=== PATIENT | female | born 1935 | race Caucasian/White ===

== ENCOUNTER 2016-05-18 10:30 | Outpatient (RCR) | payer MEDICARE, OTHER ==
--- NOTE | 2016-04-08 11:52 | PT/OT/ST INITIAL EVALUATION ---
Department of Health and Human Services Form Approved [facility] Care Financing Administration OMB No. [id number] PLAN OF CARE/ASSESSMENT FOR OUTPATIENT REHABILITATION (Complete for Initial Claims Only) 1. LAST NAME Negrita FIRST NAME Alba Sanchez 2. ACC # [id number] 3. [facility] [id number] 4. TYPE: X PT 5. REFERRING PHYSICIAN Dr. Ela Bone 6. PRIMARY DX ICD 10 code M21.372 Left extremity weakness and foot drop 7. SECONDARY DX 8. ONSET DATE 5 years ago 9. REFERRAL DATE 04/05/2016 10. SOC. DATE/TIME 04/05/2016 16:19 11. PRIOR LEVEL OF FUNCTION; PERTINENT HISTORY (Prior therapy results, reason for referral.) S: The patient is an 80-year-old female who did consent to today's evaluation and treatment. The patient was referred by Dr. Ela Bone to address progressive left lower extremity weakness and foot drop. The patient has noted, over the past 5 years, her left lower extremity feels as if it is getting weaker and recently had a fall 3 weeks ago with no fractures or serious injuries from this issue. 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 The patient has had one other fall this year. Prior level of function: The patient does live in a house by herself with 2 entry steps. She is still driving. The patient was able to ambulate without an assistive device prior to her fall and was working out at the [employer] 3 times a week approximately 4 months ago. Current function: The patient reports since her fall, she has had increased unsteadiness, had been required to ambulate with a cane and has increased difficulty with ambulating as far as she wants was due to her unsteadiness. Therapy History: The patient has had physical therapy for this issue; however, this was approximately 3 to 4 years ago. She did find benefit in participating in a therapy at that time. Pain level: The patient's maximal pain level is 10/10 in the left lower extremity at night. This does occur 3 to 4 times a week and it is improved when she straightens her leg out. Her current pain level in the left lateral ankle is a 1/10. She does describe her pain as having tingling at times, as well as pain progressing from the lateral ankle all the way up the lateral thigh. Diagnostic tests: The patient does report she did undergo diagnostic testing following her fall 3 weeks ago completed by the ER. 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 Medication list: The patient does take a thyroid medication, depression medication and half a hypertension medication. All of her medications that she takes [id number] include Tylenol, ibuprofen Aleve, or aspirin. The patient's goal for physical therapy is to be able to ambulate without falling. 12. INITIAL ASSESSMENT/SAFETY PRECAUTIONS/MEDICAL COMPLICATIONS (Level of function at start of care. Be specific, use objective measures, list problems.) O: APPEARANCE AND OBSERVATION: Assessment of the patient's gait reveals left posterior rotation, increased lateral trunk lean bilaterally, as well as foot flap positioning on the left side. Assessment of the patient's movement revealed delayed muscle firing on the left lower extremity throughout the ankle, knee and hip musculature in comparison to the right. With the long sitting test, the right lower extremity moves from short too long. SPECIAL TESTS: The patient has a negative slump test and negative straight leg raise test for increased nerve tension or back pain. The Tinetti balance assessment was performed without an assistive device with the patient scoring 11/16 on the standing portion, 9/12 on the gait portion for a total of 19/28. The patient scores a 12/24 on the dynamic gait index, her lower extremity functional index score is a 56.25% disability. RANGE OF MOTION/FLEXIBILITY: right ankle dorsiflexion actively is 19 degrees, left is 7 degrees. Right ankle plantar flexion actively is 45 degrees, left is 40 degrees. All other lower extremity range of motion is equal with the exception of delayed movements noted when performed with the left lower extremity. STRENGTH: Right hip flexion strength is 3+/5, left 2+/5. Right knee flexion 5/5, left 3+/5. Right knee extension 5/5, left 4/5. Right ankle dorsiflexion 4/5, left 3+/5. TODAY'S TREATMENT: Today's treatment consisted of initiating a home exercise program for the patient including ankle active range of motion, long arc quads and hip flexion active range of motion with emphasis on improving muscle firing and timing with the left lower extremity movements. We did initiate hamstring stretching on the left, however, due to weakness; the patient is unable to perform this on her own at home secondary to needing help in the clinic this date. The patient was educated on the treatment plan, as well as the goals, for her therapy plan and is in agreement to the established plan of care. 13. INITIAL POC: (Specify procedures, modalities, short and bed bug exterminator goals) A: The patient presents to physical therapy with impaired left lower extremity muscle firing, weakness, and impaired gait and balance. PROGNOSIS: The patient does have a good prognosis with regular therapy attendance to physical therapy and compliance with home exercise program, as well as compliance with recommendations on activity modifications. OUTCOME ASSESSMENT: The patient's G code is G8978 with the modifier of CK scoring a 56.25% disability on the lower extremity functional index. SHORT TERM GOALS X2 WEEKS: 1. The patient will improve left ankle active dorsiflexion to be within 5 degrees of the right. 2. The patient will improve left hip flexion, knee flexion and ankle dorsiflexion to be a minimum of 4/5. 3. The patient will demonstrate the ability to ambulate 200 feet demonstrating heel-to-toe gait pattern on the left lower extremity. 4. The patient will report compliance with her home exercise program. CASE CHECKER GOALS X4 WEEKS: 1. The patient will improve her Tinetti balance assessment score by a minimum of 5 points putting her in a low fall risk category. 2. The patient will improve her dynamic gait index score by a minimum of 4 points demonstrating a significant improvement in dynamic balance. 3. The patient will improve her lower extremity functional index disability by a minimum of 10%. 4. The patient will report minimal to no pain in the left lower extremity at night. PLAN: Plan to treat the patient 3 times per week for 4 weeks in order to address the left lower extremity weakness, pain and gait and balance dysfunction. Treatment will include manual therapy as needed to improve muscle flexibility and mobility, therapeutic exercise emphasizing active, active assist, and resistive exercise, gait training with and without an assistive device, balance and proprioceptive training emphasizing muscle firing, coordination, neuromuscular reeducation, and patient education, as well as advancement of her home exercise program. Thank you for the referral of this patient. 14. FUNCTIONAL LEVEL (End of claim period) 15. PHYSICIAN SIGNATURE ? ON FILE OR ENTER HERE: 16. DATE: I certify the need for these services furnished under this plan of care and if for partial hospitalization. 17. CERTIFICATION FROM THROUGH FORM
[~2016-05-18 10:30] MED LIST: CEPH-507 PO; CTLP20T PO; HCT25T PO; LEVO75TA6 PO; LORA0.5T PO; OXYB10TA PO; TRM50T PO
[2016-06-09] MEDS ORDERED: AZIT250T81 PO (16:31)
== END 2016-05-25 09:59 | disposition home or self-care (01) ==
LOC: PT 10:30
PROVIDERS: ATTEND Family Medicine
DX: M21.372 Foot drop, left foot (principal); R29.898 Other symptoms and signs involving the musculoskeletal system
CPT/HCPCS: 97001; 97110; 97112; 97116; G8978; G8979

== ENCOUNTER → 2016-06-09 | Outpatient (CLI) | payer MEDICARE, OTHER ==
[2016-06-09 16:33] VITALS: BP 118/70
== END ==
LOC: MHUC 16:09
PROVIDERS: ATTEND Physician Assistant
DX: J40 Bronchitis, not specified as acute or chronic (principal)
CPT/HCPCS: 99213